=== PATIENT | female | born 1960 | race Caucasian/White ===

== ENCOUNTER 2018-07-03 22:26 | Emergency (ER) | payer MEDICAID, OTHER ==
[~2018-07-03] VITALS: Ht 170.2 cm; Wt 56.7 kg
--- NOTE | 2018-07-03 22:50 | NUR ---
DR. BANSAL AT BEDSIDE FOR MSE.
[2018-07-03] MEDS: IBUPROFEN 600 MG TABLET PO ONE (23:38)
--- NOTE | 2018-07-03 23:40 | NUR ---
Patient discharged to home in stable conditon. Written and verbal after care instructions given. Patient verbalizes understanding of instructions. PATIENT LEFT WITH STABLE GAIT.
[2018-07-03 23:41] VITALS: BP 106/69
[2018-07-03] MEDS ORDERED: IBUPROFEN 600 MG TABLET ONE (23:41)
== END 2018-07-03 23:41 | disposition home or self-care (01) ==
LOC: ER 22:30
DX: S60.222A Contusion of left hand, initial encounter (principal); F17.200 Nicotine dependence, unspecified, uncomplicated; Z90.710 Acquired absence of both cervix and uterus; Z88.5 Allergy status to narcotic agent; W01.198A Fall on same level from slipping, tripping and stumbling with subsequent striking against other object, initial encounter; Y93.89 Activity, other specified; Y92.89 Other specified places as the place of occurrence of the external cause; Y99.8 Other external cause status
CPT/HCPCS: 73100; 73120; A4663

== ENCOUNTER 2018-09-07 03:52 | Emergency (ER) | payer OTHER ==
[~2018-09-07] VITALS: Ht 170.2 cm; Wt 56.7 kg
--- NOTE | 2018-09-07 04:20 | NUR ---
Patient discharged to home in stable conditon. Written and verbal after care instructions given. Patient verbalizes understanding of instructions. walked out of ER with no distress noted
== END 2018-09-07 04:23 | disposition home or self-care (01) ==
LOC: ER 03:55
DX: K08.89 Other specified disorders of teeth and supporting structures (principal); H01.005 Unspecified blepharitis left lower eyelid; F17.200 Nicotine dependence, unspecified, uncomplicated; Z90.710 Acquired absence of both cervix and uterus; Z88.5 Allergy status to narcotic agent
CPT/HCPCS: A4663

== ENCOUNTER 2023-06-25 04:58 | Emergency (ER) | payer OTHER ==
[~2023-06-25] VITALS: Ht 170.2 cm; Wt 57.2 kg
[2023-06-25] MEDS ORDERED: LIDOCAINE HCL 1% 20 ML VIAL IJ ONE (05:45)
[2023-06-25] MEDS ORDERED: CEphaleXIN 500 MG CAPSULE PO ONE (05:45)
[2023-06-25] MEDS ORDERED: SULFAMETH/TRIMETH 800/160 MG TABLET PO ONE (05:45)
[2023-06-25] MEDS ORDERED: SULFAMETH/TRIMETH 800/160 MG TABLET ONE (05:48)
[2023-06-25] MEDS ORDERED: CEphaleXIN 500 MG CAPSULE ONE (05:48)
[2023-06-25] MEDS ORDERED: SULF1TAB48 PO (05:49)
[2023-06-25] MEDS ORDERED: NAPR-1009 PO (05:49)
[2023-06-25] MEDS ORDERED: CEPH500C2 PO (05:49)
[2023-06-25] MEDS ORDERED: NAPROXEN 500 MG TABLET PO ONE (06:00)
[2023-06-25] MEDS ORDERED: NAPROXEN 500 MG TABLET ONE (06:01)
[2023-06-25 06:05] VITALS: BP 121/80; TEMP 98; O2SAT 99
== END 2023-06-25 06:05 | disposition home or self-care (01) ==
LOC: ER 04:58
DX: L03.211 Cellulitis of face (principal); Z90.710 Acquired absence of both cervix and uterus; Z88.5 Allergy status to narcotic agent; Z79.899 Other long term (current) drug therapy
CPT/HCPCS: A4663

== ENCOUNTER 2024-12-27 05:54 | Emergency (ER) | payer OTHER ==
[~2024-12-27] VITALS: Ht 170.2 cm; Wt 59.0 kg
[~2024-12-27 05:54] MED LIST: CEPH500C2 PO; NAPR-1009 PO; SULF1TAB48 PO
[2024-12-27 06:44] VITALS: O2SAT 97
== END 2024-12-27 08:35 | disposition left against medical advice (07) ==
LOC: ER 06:12
DX: S93.492A Sprain of other ligament of left ankle, initial encounter (principal); M25.472 Effusion, left ankle; M25.572 Pain in left ankle and joints of left foot; F12.90 Cannabis use, unspecified, uncomplicated; F17.210 Nicotine dependence, cigarettes, uncomplicated; Z88.2 Allergy status to sulfonamides; Z90.710 Acquired absence of both cervix and uterus; X50.1XXA Overexertion from prolonged static or awkward postures, initial encounter; Y93.89 Activity, other specified; Y92.89 Other specified places as the place of occurrence of the external cause; Y99.8 Other external cause status
CPT/HCPCS: 73600; A4606; A4663